=== PATIENT | male | born 1960 | race Caucasian/White ===

== ENCOUNTER 2017-05-20 08:19 | Inpatient (IN) | payer OTHER ==
[~2017-05-20 08:19] MED LIST: NORVASC5 MG PO
== END 2017-05-21 10:00 | disposition home or self-care (01) | DRG 713 ==
LOC: CIR.AMB 08:19 → SURG 18:18 → O/R 19:26
PROVIDERS: Urology
PROC: 0VT08ZZ Resection of Prostate, Via Natural or Artificial Opening Endoscopic (ICD-10-PCS; principal; 2017-05-20 11:30)
DX: N40.1 Benign prostatic hyperplasia with lower urinary tract symptoms (principal); N13.8 Other obstructive and reflux uropathy; I10 Essential (primary) hypertension

== ENCOUNTER 2017-06-29 07:08 | Outpatient (CLI) | payer OTHER | END 2017-06-29 07:14 | disposition home or self-care (01) | LOC: LAB 07:08 | DX: R97.21 Rising PSA following treatment for malignant neoplasm of prostate (principal) ==